=== PATIENT | female | born 1980 | race Caucasian/White ===

== ENCOUNTER 2020-07-30 07:43 | Outpatient (CLI) | payer OTHER, SELFPAY ==
--- NOTE | ~2020-07-30 | MM_ITS ---
EXAMINATION: MM screening enrique BI w sheri HISTORY: Screening TECHNIQUE: Craniocaudal and mediolateral oblique 3-D tomosynthesis images were obtained and synthetic 2-D images were generated. CAD analysis was submitted and interpreted. COMPARISON: No prior mammogram is available for comparison at this institution. BREAST PARENCHYMAL COMPOSITION: The breasts are heterogenously dense, which may obscure small masses. FINDINGS: There is possible architectural distortion bilaterally in the mid outer aspect of both wander sts. There are no suspicious calcifications or discrete masses. IMPRESSION: 1. Possible bilateral architectural distortion. 2. Additional mammographic views and possible breast ultrasound are recommended. BI-RADS Category 0: Incomplete: Needs additional imaging evaluation. Reviewed, dictated and finalized at location A. NE FIRE FIGHTER IMPRESSION: 1. Possible bilateral architectural distortion. 2. Additional mammographic views and possible breast ultrasound are recommended . BI-RADS Category 0: Incomplete: Needs additional imaging evaluation.
== END 2020-07-30 07:44 | disposition home or self-care (01) ==
PROVIDERS: PCP Family Medicine; Visit Provider Obstetrics & Gynecology
DX: Z12.31 Encounter for screening mammogram for malignant neoplasm of breast (principal); R92.8 Other abnormal and inconclusive findings on diagnostic imaging of breast
CPT/HCPCS: 77063; 77067

== ENCOUNTER 2020-08-27 13:25 | Outpatient (CLI) | payer OTHER, SELFPAY ==
--- NOTE | ~2020-08-27 | MMUS_ITS ---
EXAMINATION: MM diagnostic enrique BI w sheri, US breast BI limited HISTORY: Possible architectural distortion of the breasts on screening mammogram TECHNIQUE: Additional 3-D tomosynthesis images of the breasts were performed and synthetic 2-D images were generated. CAD analysis was submitted and interpreted. High resolution limited bilateral breast ultrasound was performed. COMPARISON: 07/30/2020 FINDINGS: MAMMOGRAPHIC FINDINGS: There is persistent architectural distortion in the posterior third of the central and lower breasts with spot compression. No suspicious mass or calcification is identified. ULTRASOUND: Right breast: There is a 10 mm cyst at the 9:00 location near the nipple. A 3 mm oval, circumscribed, parallel, hypoechoic mass with no posterior features or internal vascularity is present at the 8:00 location near the nipple. A 4 mm mass with similar sonographic features is seen at the 6:00 location near the nipple. Left breast: There is a 5 mm x 2 mm oval, circumscribed, parallel, hypoechoic mass with no posterior features or internal vascularity at the 7:00 location near the nipple. IMPRESSION: 1. Bilateral breast findings which likely relate to history of reduction mammoplasty. 2. Recommend 6 month follow-up bilateral diagnostic mammogram with possible ultrasound. BI-RADS category 3, probably benign findings. Reviewed, dictated and finalized at location [facility]. IMPRESSION: 1. Bilateral breast findings which likely relate to history of reduction mammop lasty. 2. Recommend 6 month follow-up bilateral diagnostic mammogram with possible ult rasound. BI-RADS category 3, probably benign findings.
== END 2020-08-27 13:26 | disposition home or self-care (01) ==
LOC: ANHIMG 13:29
PROVIDERS: PCP Family Medicine; Visit Provider Obstetrics & Gynecology
DX: R92.8 Other abnormal and inconclusive findings on diagnostic imaging of breast (principal)
CPT/HCPCS: 76642; 77062; 77066; G0279

== ENCOUNTER 2021-06-23 12:47 | Outpatient (CLI) | payer OTHER, SELFPAY ==
--- NOTE | ~2021-06-23 | MMUS_ITS ---
EXAMINATION: MM diagnostic enrique BI w sheri, US breast BI limited HISTORY: Overdue follow-up for probably benign breast masses and architectural distortion TECHNIQUE: Craniocaudal, mediolateral, and mediolateral oblique 3-D tomosynthesis images of the viviana ts were performed and synthetic 2-D images were generated. CAD analysis was submitted and interpreted . High resolution limited bilateral breast ultrasound was performed. COMPARISON: 08/27/2020, 07/30/2020 BREAST PARENCHYMAL COMPOSITION: The breasts are heterogeneously dense, which may obscure small masses . FINDINGS: MAMMOGRAPHIC FINDINGS: Subtle architectural distortion in the breasts persists without significant change, most consistent w ith changes of reduction mammoplasty There is no evidence of suspicious mass, calcification, or archi tectural distortion in either breast to suggest malignancy. There has been no suspicious interval ab nge. ULTRASOUND: There is a 9 mm cyst of the right breast near the nipple. Additional sonographically detected masses of the right breast previously described are no longer evident. An 8 mm x 3 mm oval, circumscribed, p arallel, hypoechoic mass with no posterior features or internal vascularity is seen at the 7:00 locat ion near the nipple. IMPRESSION: 1. Probably benign sonographically detected left breast mass. 2. Recommend 6 month follow-up targeted left breast ultrasound. BI-RADS category 3, probably benign findings. Reviewed, dictated and finalized at location A. OND MOUNTER IMPRESSION: 1. Probably benign sonographically detected left breast mass. 2. Recommend 6 month follow-up targeted left breast ultrasound. BI-RADS category 3, probably benign findings.
== END 2021-06-23 12:48 | disposition home or self-care (01) ==
LOC: ANHIMG 12:48
PROVIDERS: PCP Family Medicine; Visit Provider Obstetrics & Gynecology
DX: R92.8 Other abnormal and inconclusive findings on diagnostic imaging of breast (principal)
CPT/HCPCS: 76642; 77062; 77066; G0279

== ENCOUNTER 2021-12-15 12:59 | Outpatient (CLI) | payer OTHER, SELFPAY ==
--- NOTE | ~2021-12-15 | US_ITS ---
US breast LT limited 12/15/2021 13:32 Indication: Follow-up left breast mass Procedure: High-resolution Limited ultrasound of the left breast Comparison: 06/23/2021 Findings: At 7:00 near the nipple there is an oval parallel oriented hypoechoic mass measuring 6 x 3 x 5 mm without significant change from prior study allowing for differences of technique. No internal vascularity or posterior features. Impression: 1: Stable left breast mass at 7:00 near the nipple, likely benign. BI-RADS CATEGORY 3-PROBABLY BENIGN FINDING RECOMMENDATION: Six-month follow-up diagnostic bilateral mammogram and limited left breast ultrasound recommended. Reviewed, dictated and finalized at location [facility]. Impression: 1: Stable left breast mass at 7:00 near the nipple, likely benign. BI-RADS CATEGORY 3-PROBABLY BENIGN FINDING RECOMMENDATION: Six-month follow-up diagnostic bilateral mammogram and limited left breast ultrasound recommended.
== END 2021-12-15 13:00 | disposition home or self-care (01) ==
LOC: ANHIMG 13:01
PROVIDERS: PCP Family Medicine; Visit Provider Obstetrics & Gynecology
DX: R92.8 Other abnormal and inconclusive findings on diagnostic imaging of breast (principal)
CPT/HCPCS: 76642

== ENCOUNTER 2022-07-02 13:21 | Outpatient (CLI) | payer BC, SELFPAY ==
--- NOTE | ~2022-07-02 | MMUS_ITS ---
EXAMINATION: MM diagnostic enrique BI w sheri, US breast LT limited HISTORY: Follow-up left breast mass TECHNIQUE: Additional 3-D tomosynthesis images of the breasts were performed and synthetic 2-D images were generated. CAD analysis was submitted and interpreted. High resolution Limited left breast ultr asound was performed. COMPARISON: Comparison to multiple prior studies sequentially, with oldest reviewed study dated 07/2020. BREAST PARENCHYMAL COMPOSITION: BREAST PARENCHYMAL COMPOSITION: The breasts are heterogeneously dense, which may obscure small masses . FINDINGS: MAMMOGRAPHIC FINDINGS: The breasts are stable. No new masses, calcifications or architectural distortion in either breast to suggest malignancy. ULTRASOUND: Limited left breast ultrasound: At 7:00 near the nipple there is an irregular shaped hypoechoic struc ture measuring 3 mm greatest dimension. This likely represents superimposed fibroglandular content. T his area appears less prominent than on prior examination when it measured up to 6 mm. IMPRESSION: 1. Probable benign heterogeneous echotexture in the left breast at 7:00 near the nipple. No new maura s or cysts are identified. 2. Recommend 6 month follow-up Limited left breast ultrasound BI-RADS category 3, probably benign findings. Reviewed, dictated and finalized at location A. EXAMINER IMPRESSION: 1. Probable benign heterogeneous echotexture in the left breast at 7:00 near th e nipple. No new masses or cysts are identified. 2. Recommend 6 month follow-up Limited left breast ultrasound BI-RADS category 3, probably benign findings.
== END 2022-07-02 13:22 | disposition home or self-care (01) ==
PROVIDERS: PCP Family Medicine; Visit Provider Obstetrics & Gynecology
DX: R92.8 Other abnormal and inconclusive findings on diagnostic imaging of breast (principal)
CPT/HCPCS: 76642; 77062; 77066; G0279

== ENCOUNTER → 2022-07-24 07:07 | Outpatient (CLI) | payer BC, SELFPAY ==
--- NOTE | ~2022-07-24 | MR_ITS ---
MRI of the right ankle Clinical history: Pain Technique: Coronal proton-density and proton-density fat-sat images, axial proton-density and proton- density fat-sat images, and sagittal proton-density and proton-density fat-sat images were acquired. Findings: Syndesmotic ligaments are intact. Anterior talofibular ligament is intact, with mildly incr eased signal, compatible with mild sprain. Posterior talofibular and calcaneofibular ligaments are in tact. Deltoid ligament is intact. Medial flexor tendons, anterior extensor tendons, and Achilles tendon are intact. There is a longitud inal split tear of the peroneus brevis tendon at the level of the lateral malleolus. Peroneus longus tendon is intact. There is marrow edema at the medial corner of the talar dome, probably related to overlying focal cho ndral lesion. Remaining bone marrow signals are unremarkable. No significant joint effusion. Plantar fascia is intact. Normal signal preserved in the sinus Tarsi. No soft tissue mass or other fl uid collection seen. Impression: Longitudinal split tear of the peroneus brevis tendon at the level of the lateral malleolus. Probable low-grade sprain of the anterior talofibular ligament. Marrow edema at the medial corner of the talar dome is consistent with underlying mild or early osteo chondral lesion. Reviewed, dictated and finalized at [facility]. NSED ACUPUNCTURIST Impression: Longitudinal split tear of the peroneus brevis tendon at the level of the later al malleolus. Probable low-grade sprain of the anterior talofibular ligament. Marrow edema at the medial corner of the talar dome is consistent with underlyi ng mild or early osteochondral lesion.
== END ==
PROVIDERS: PCP Family Medicine; Visit Provider Orthopaedic Surgery
DX: S93.401A Sprain of unspecified ligament of right ankle, initial encounter (principal); X58.XXXA Exposure to other specified factors, initial encounter
CPT/HCPCS: 73721

== ENCOUNTER 2023-01-19 16:32 | Outpatient (CLI) | payer BC, SELFPAY ==
--- NOTE | ~2023-01-19 | US_ITS ---
US breast LT limited DATE: 01/19/2023 16:59 INDICATION: Six-month follow-up of 7:00 irregular hypoechoic 3 mm finding noted on July 02, 2022, reported diminished in size at that time compared to 12/15/2021 Limited left breast ultrasound examina tion TECHNIQUE: Targeted ultrasound at 7:00 near nipple COMPARISON: July 02, 2022 and December 15, 2021 Limited left breast ultrasound examinations 07/30/2020 bilateral screening mammogram FINDINGS: Hypoechoic area currently measures approximately 2.2 x 3.2 x 3.2 mm compared to previous me asurement of 3.4 x 3.4 x 2.8 mm on 07/02/2021. There is no internal vascularity or suspicious shadowing . No significant abnormalities identified. IMPRESSION: BI-RADS Category 2: Benign Recommendation: Routine mammographic screening Reviewed, dictated and finalized at [facility]. Reviewed, dictated and finalized at location [facility].
== END 2023-01-19 16:33 | disposition home or self-care (01) ==
PROVIDERS: PCP Family Medicine; Visit Provider Obstetrics & Gynecology
DX: R92.8 Other abnormal and inconclusive findings on diagnostic imaging of breast (principal)
CPT/HCPCS: 76642

== ENCOUNTER 2023-12-15 08:59 | Outpatient (CLI) | payer BC, SELFPAY ==
--- NOTE | ~2023-12-15 | MM_ITS ---
EXAMINATION: MM screening enrique BI w sheri HISTORY: Screening TECHNIQUE: Craniocaudal and mediolateral oblique 3-D tomosynthesis images were obtained and synthetic 2-D images were generated. CAD analysis was submitted and interpreted. COMPARISON: Comparison to multiple prior studies sequentially, with oldest reviewed study dated 07/2020. BREAST PARENCHYMAL COMPOSITION: Dense: The breasts are heterogeneously dense, which may obscure small masses FINDINGS: There is no evidence of suspicious mass, calcification, or architectural distortion to sugg est malignancy in either breast. There has been no suspicious interval change. IMPRESSION: 1. No mammographic evidence of malignancy. 2. Recommend routine screening mammography in one year. BI-RADS Category 1: Negative Reviewed, dictated and finalized at location B.
== END 2023-12-15 09:00 | disposition home or self-care (01) ==
PROVIDERS: PCP Family Medicine; Visit Provider Obstetrics & Gynecology
DX: Z12.31 Encounter for screening mammogram for malignant neoplasm of breast (principal)
CPT/HCPCS: 77063; 77067

== ENCOUNTER 2024-07-03 15:08 | Emergency (ER) | payer BC, SELFPAY ==
--- NOTE | 2024-07-03 15:20 | ED_ITS ---
HPI - URI/Sore Throat General Chief Complaint: Upper Respiratory Infection Stated Complaint: Strep Symptoms Time Seen by Provider: 07/03/24 15:24 Source: patient Mode of arrival: ambulatory Limitations: no limitations History of Present Illness HPI Narrative: Thais is a 44-year-old female patient presenting to the clinic today with complaints of sinus congestion, nasal congestion, sinus drainage, and sore thro at x2 weeks. She reports she is coughing up and blowing out green nasal drainage. No fever or chills. MD elicited complaint: sore throat, nasal congestion and sinus pain Related Data Allergies Allergy/AdvReac Type Severity Reaction Status Date / Time No Known Allergies Allergy Verified 01/08/23 15:33 Review of Systems Review of Systems: Pertinent positives per HPI. Patient denies any fever, chills, rash, visual changes, dizziness, cough, shortness of breath, chest pain, palpitations, nausea, vomiting, diarrhea, constipation, abdominal pain, or any urinary issues. PMFSH Surgical History Surgical History Hx of bilateral breast reduction surgery Family History Family History Father GERD with stricture Hypertension Grandparent Malignant neoplasm of prostate Social History Social History Smoking status: Never smoker Second hand tobacco smoke exposure: No Alcohol intake: current Drinks per week: 4 Substance use: never Substance use type: does not use Lack of Transportation: No Lack of Food: Never True Current Housing: I Have Housing Concerned About Future Housing: No Difficulty Paying Gas/Electric Bills: No Difficulty Paying for Meds: No Currently Unemployed: No Education: Master's Degree or Higher Difficulty w/ Childcare or Family Care: No Living arrangements: with family Occupation/Education: other Gender identity (if verbalized by the patient): Female Spiritual care concerns: Yes (Evangelical) Agree to blood products: Yes Comments At the time of my signature, I reviewed and agree with the nursing past medical, surgical, social, and family history. There is no relevant family history pertinent to the patient complaint. Exam Narrative: General: Well-developed, well nourished, in no apparent distress Head: Normocephalic, atraumatic Eyes: Pupils equally round and reactive to light bilaterally, EOM intact, sclera and conjunctive clear, no discharge, lids normal Ears: TMs intact and congested, ear canals clear, no drainage, grossly hearing normal. Nose: Nares patent, green nasal discharge, moderate inflammation, maxillary and frontal sinus tenderness. Mouth: Oral pharynx red without lesions or masses, good dentition, MMM. Postnasal drip Neck: Supple, trachea midline, no enlargement of anterior or posterior cervical nodes, no thyroid masses or goiter palpable. Cardio: Regular rate and rhythm, s1 and s2 normal, no murmur appreciated. Resp: Clear to auscultation bilaterally, no rhonchi, rales, wheezing or rubs Course Course Emergency Course: Portions of this record may have been created with voice recognition software. Level of Care: Express Care Visit Vital Signs Vital signs: Vital Signs Temperature 37.4 C 07/03/24 15:22 Pulse Rate 102 H 07/03/24 15:22 Respiratory Rate 16 07/03/24 15:22 Blood Pressure 109/78 07/03/24 15:22 Pulse Oximetry 100 07/03/24 15:22 Temperature 37.4 C 07/03/24 15:22 Pulse Rate 102 H 07/03/24 15:22 Respiratory Rate 16 07/03/24 15:22 Blood Pressure 109/78 07/03/24 15:22 Pulse Oximetry 100 07/03/24 15:22 Vital signs reviewed MDM - URI/Sore Throat MDM Narrative Medical decision making narrative: At the time of visit patient is resting comfortably on the exam table. Patient appears to be nontoxic. Labs: Strep test was negative in the clinic today. We will send for culture Plan: I suspect patient has acute bacterial rhinosinusitis. Prescription for Augmentin and prednisone was sent to the pharmacy. Supportive measures were discussed with the patient and they voiced understanding discharge instructions and agrees to treatment plan. Return precautions reviewed Differential Diagnosis Differential diagnosis: Likely upper respiratory infection, otitis media, s inusitis, viral infection, bronchitis, influenza, pharyngitis and other (COVID) Discharge Plan Discharge Clinical Impression: Acute bacterial rhinosinusitis Patient Disposition: Home, Self-Care Condition: Stable Instructions: Antibiotic Form, Rhinosinusitis (ED) Additional Instructions: Strep test was negative in the clinic today. Take prescription medications only as prescribed-Augmentin and prednisone Increase fluids and stay well hydrated Tylenol/motrin for pain/fever Flonase and OTC antihistamines as directed Vicks vapor rub to open sinuses Sinus rinses for congestion Cepacol spray, cough drops, throat lozenges, warm tea with honey/lemon, gargle salt water to soothe throat BRAT diet for diarrhea Clear liquids x 24 hours then advance as tolerated for nausea/vomiting Go to the ED if you develop a worsening in your condition- high fever not controlled by Tylenol or Motrin, dehydration, weakness, lethargy, shortness of breath, or chest pain. Follow up with your PCP in 3-5 days if symptoms persist. Patient Language: Italian Prescriptions: New amoxicillin-pot clavulanate 875-125 mg tablet 1 tablet PO Q12H 10 Days Qty: 20 0RF prednisone 20 mg tablet 40 mg PO DAILY 5 Days Qty: 10 0RF No Action norethindrone-e.estradiol-iron [June06/19 (28)] 1 mg-20 mcg (21)/75 mg (7) tablet See Rx Instructions .ROUTE .COMPLEX Qty: 84 1RF Dose Instruction: TAKE 1 TABLET BY MOUTH DAILY Rx Instructions: TAKE 1 TABLET BY MOUTH DAILY azithromycin 250 mg tablet See Rx Instructions PO .COMPLEX Qty: 6 0RF Rx Instructions: For 250 mg dose pack: take 500 mg today (day 1), then 250 mg for 4 days (days 2-5) PO Paxlovid 300 mg (150 mg x 2)-100 mg tablets,dose pack See Rx Instructions PO PER PKG DIR Qty: 1 0RF Rx Instructions: PO per package directions; pantoprazole [Protonix] 20 mg tablet,delayed release (DR/EC) 20 mg PO QAM Qty: 30 0RF Rx Instructions: NEEDS APPOINTMENT FOR FURTHER REFILLS Follow-up/Referrals: Thais Sher MD [Primary Care Provider] - Time of Disposition: 15:24 Quality NIHSS Nursing Documentation ED NIHSS nursing documentation: reviewed/agree
[2024-07-03 15:22] VITALS: BP 109/78; PULSE 102; RESP 16; TEMP 37.4; O2SAT 100
[2024-07-03 15:30] LABS: EDSTREPNEGPOS1 Negative (Negative)
== END 2024-07-03 15:34 | disposition home or self-care (01) ==
PROVIDERS: Emergency Provider Nurse Practitioner Family; PCP Family Medicine
DX: J01.90 Acute sinusitis, unspecified (principal)
CPT/HCPCS: 87081; 87880; 99213; G0463